=== PATIENT | male | born 1960 | race Caucasian/White ===

== ENCOUNTER 2024-02-06 06:54 | Inpatient (IN) | payer BC ==
[~2024-02-06] VITALS: Ht 182.9 cm; Wt 217.0 kg
[2024-02-06 07:27] LABS: BILIRUBIN,URINE MODERATE (Neg); CLARITY,URINE CLOUDY (Clear); COLOR,URINE AMBER (Yellow); GLUCOSE, URINE NEGATIVE (Neg); KETONES,URINE TRACE mg/dl (Neg); LEUKOCYTE ESTERASE ,URINE NEGATIVE (Neg); OCCULT BLOOD,URINE SMALL (Neg); PH,URINE 5.5 (4.8-8.0); PROTEIN,URINE 100 mg/dl (Neg)
[2024-02-06 07:36] LABS: UA COLLECTION TYPE CLN CATCH MIDSTREAM
[2024-02-06 07:37] LABS: NITRITES, URINE NEGATIVE (Neg)
[2024-02-06 07:38] LABS: SQUAMOUS EPITHELIAL CELL,UR MODERATE /LPF (FEW)
[2024-02-06 07:39] LABS: BACTERIA,URINE FEW /HPF (Neg)
[2024-02-06 07:42] LABS: ALBUMIN 3.3 G/DL (3.4-5.0); ANION GAP 12 (8-16); BASOPHILS # (AUTO) 0.1 X10'3 (0-0.2); BASOPHILS % (AUTO) 0.2 % (0-1); BLOOD UREA NITROGEN 18 MG/DL (7-18); BUN/CREATININE RATIO 15.3 (10.0-20.0); CALCIUM 9.2 MG/DL (8.5-10.1); CHLORIDE 102 MMOL/L (99-107); CREATININE 1.18 MG/DL (0.60-1.10); EOSINOPHILS % (AUTO) 0 % (0-6); GLUCOSE 132 MG/DL (70-104); HEMATOCRIT 42.2 % (42.0-52.0); HEMOGLOBIN 14.4 g/dl (14.0-17.9); LIPASE 11 U/L (16-77); LYMPHOCYTES # (AUTO) 1.1 X10'3 (1.1-4.8); LYMPHOCYTES % (AUTO) 3.8 % (21-51); MEAN CORPUSCULAR HEMOGLOBIN 31.7 PG (27.0-31.0); MEAN CORPUSCULAR VOLUME 93.2 FL (78-98); MONOCYTES # (AUTO) 1.9 X10'3 (0-0.9); MONOCYTES % (AUTO) 6.7 % (2-12); NEUTROPHILS # (AUTO) 25.8 X10'3 (1.8-7.7); NEUTROPHILS % (AUTO) 89.3 % (42-75); PLATELET COUNT 198 X10'3 (140-440); POTASSIUM 4.1 MMOL/L (3.5-5.1); RED BLOOD COUNT 4.53 X10'6 (4.70-6.10); RED CELL DISTRIBUTION WIDTH 13.4 % (11.5-14.5); SODIUM 138 MMOL/L (135-145); TOTAL CARBON DIOXIDE 23.7 MMOL/L (24-32); eCRCL 70 ML/MIN; eGFR 62 ML/MIN
[2024-02-06 07:49] LABS: WHITE BLOOD COUNT 28.9 X10'3 (4.5-11.0)
[2024-02-06] MEDS: normal saline 1000ML IV soln IVB ONE (07:51)
[2024-02-06] MEDS: ketorolac trometh 15mg/ml vial 15 MG/ML ML IV ONE (07:54)
--- NOTE | 2024-02-06 08:00 | NUR ---
Dr. Girard and biology specimen technician at bedside.
--- NOTE | 2024-02-06 08:08 | NUR ---
instrument technician at bedside. Discussed pts WBC count with Dr Girard and received verbal order to draw one set of blood cultures prior to starting ABX.
--- NOTE | 2024-02-06 08:09 | NUR ---
Patient to CT scan via gurney.
[2024-02-06 08:18] LABS: ALANINE AMINOTRANSFERASE 18 U/L (12-78); ALBUMIN/GLOBULIN RATIO 0.8 (1.1-1.5); ALKALINE PHOSPHATASE 74 IU/L (46-116); ASPARTATE AMINO TRANSFERASE 12 U/L (10-37); BILIRUBIN,DIRECT 0.4 MG/DL (0-0.3); BILIRUBIN,TOTAL 1.7 MG/DL (0.1-1.0); TOTAL PROTEIN 7.7 G/DL (6.4-8.2)
[2024-02-06 08:30] LABS: TOTAL CELLS COUNTED 100
[2024-02-06 08:34] LABS: PLATELET ESTIMATE NORMAL
--- NOTE | 2024-02-06 08:43 | NUR ---
Dr Joe at bedside with Dr Girard to discuss plan of care
[2024-02-06] MEDS: piperacillin/tazo 3.375gm/50ml 50 ML IV ONE (08:55)
[2024-02-06] MEDS ORDERED: ondansetron/PF 4mg/2ml inj IV PRN (09:05)
[2024-02-06] MEDS ORDERED: magnesium sulf-water 2g/50mL 50 ML IV PRN (09:05)
[2024-02-06] MEDS ORDERED: magnesium sulf-water 4G/100mL 100 ML IV PRN (09:05)
[2024-02-06] MEDS ORDERED: magnesium hydroxide 30ml (MOM) UD suspension PO PRN (09:05)
[2024-02-06] MEDS ORDERED: magnesium Cl slow-release 64mg tablet PO PRN (09:05)
[2024-02-06] MEDS ORDERED: potassium Cl 20 mEq SR tablet PO PRN ×2 (09:05)
[2024-02-06] MEDS ORDERED: acetaminophen 325mg tablet PO PRN (09:05)
[2024-02-06] MEDS ORDERED: potassium Cl 40MEQ/1/2NS 520ml 520 ML IV PRN (09:05)
[2024-02-06] MEDS: normal saline 1000ml 1,000 ML IV SCH (09:35)
--- NOTE | 2024-02-06 10:17 | NUR ---
Attempted to call report, RN unavailable, will call back.
[2024-02-06 10:35] LABS: CHOL/HDL RATIO 3.7 (0.00-4.99); CHOLESTEROL 169 MG/DL (0-200); HDL CHOLESTEROL 46 MG/DL (35-60); LDL CHOLESTEROL 84 MG/DL (50-100); TRIGLYCERIDES 83 MG/DL (20-135)
[2024-02-06 11:00] VITALS: BP 97/60; PULSE 98; RESP 14; TEMP 98.6; O2SAT 97
[2024-02-06 12:00] VITALS: RESP 18
[2024-02-06] MEDS: normal saline 1000ml 1,000 ML IV ONE (15:03)
[2024-02-06] MEDS ORDERED: ketorolac trometh 15mg/ml vial 15 MG/ML ML IM PRN (15:10)
[2024-02-06] MEDS: ketorolac trometh 15mg/ml vial 15 MG/ML ML IV PRN (15:30)
[2024-02-06 16:24] VITALS: PULSE 105; RESP 20; O2SAT 94
[2024-02-06] MEDS: ipratropium/albuterol 3ml nebule NEB PRN (16:24)
[2024-02-06] MEDS: piperacillin/tazo 3.375gm/50ml 50 ML IV SCH (16:29)
[2024-02-06 16:34] VITALS: PULSE 105; RESP 18
[2024-02-06 18:00] VITALS: BP 102/62; PULSE 103; RESP 18; TEMP 98.1; O2SAT 96
--- NOTE | 2024-02-06 18:41 | NUR ---
Patient in room [facility] 4013. I have received report from Nimesh LANGE and had the opportunity to ask questions and assume patient care.
[2024-02-06] MEDS: heparin, porcine 5000 units/ml vial SQ SCH (19:54)
[2024-02-06] MEDS: docusate sod 100mg capsule PO SCH (19:55)
[2024-02-06] MEDS: K and/or MAG REPLACEMENT MC SCH (20:03)
[2024-02-06 22:00] VITALS: BP 117/65; PULSE 100; RESP 19; TEMP 97.3; O2SAT 97
[2024-02-07] VITALS (22 sets, daily range): BP systolic 100–132; BP diastolic 61–81; PULSE 76–112; RESP 15–20; TEMP 97.2–99.9; O2SAT 94–99
--- NOTE | 2024-02-07 06:49 | NUR ---
report to Yuliya MEYERS
--- NOTE | 2024-02-07 07:35 | NUR ---
call placed to DR Martinez. pt with SOB, dimished bases, breathing tx recd. Per MD able to hold NS 125. Will recheck O2 sats and call MD. Pt baseline sats 96% on RA
[2024-02-07 07:40] LABS: BASOPHILS % (AUTO) 0.1 % (0-1); EOSINOPHILS % (AUTO) 0.1 % (0-6); HEMATOCRIT 38.3 % (42.0-52.0); HEMOGLOBIN 12.9 g/dl (14.0-17.9); LYMPHOCYTES % (AUTO) 6.1 % (21-51); MEAN CORPUSCULAR HEMOGLOBIN 31.6 PG (27.0-31.0); MEAN CORPUSCULAR HGB CONC 33.6 g/dL (33.0-36.5); MEAN PLATELET VOLUME 9.3 FL (7.4-10.4); MONOCYTES # (AUTO) 0.9 X10'3 (0-0.9); MONOCYTES % (AUTO) 5.5 % (2-12); NEUTROPHILS # (AUTO) 15.1 X10'3 (1.8-7.7); NEUTROPHILS % (AUTO) 88.2 % (42-75); PLATELET COUNT 175 X10'3 (140-440); RED BLOOD COUNT 4.07 X10'6 (4.70-6.10); RED CELL DISTRIBUTION WIDTH 13.4 % (11.5-14.5); WHITE BLOOD COUNT 17.1 X10'3 (4.5-11.0)
[2024-02-07 08:03] LABS: ALANINE AMINOTRANSFERASE 26 U/L (12-78); ALBUMIN 2.6 G/DL (3.4-5.0); ALBUMIN/GLOBULIN RATIO 0.6 (1.1-1.5); ALKALINE PHOSPHATASE 80 IU/L (46-116); ANION GAP 10 (8-16); ASPARTATE AMINO TRANSFERASE 22 U/L (10-37); BLOOD UREA NITROGEN 21 MG/DL (7-18); BUN/CREATININE RATIO 20.2 (10.0-20.0); CALCIUM 8.5 MG/DL (8.5-10.1); CHLORIDE 105 MMOL/L (99-107); CREATININE 1.04 MG/DL (0.60-1.10); GLUCOSE 108 MG/DL (70-104); MAGNESIUM 1.9 MG/DL (1.5-2.4); POTASSIUM 3.7 MMOL/L (3.5-5.1); SODIUM 139 MMOL/L (135-145); TOTAL CARBON DIOXIDE 24.4 MMOL/L (24-32); TOTAL PROTEIN 6.9 G/DL (6.4-8.2); eCRCL 80 ML/MIN; eGFR 72 ML/MIN
[2024-02-07] MEDS: BUPIVAcaine 2.5mg/ml inj 50ml vial (contains preservative) ONE (08:27)
--- NOTE | 2024-02-07 08:55 | NUR ---
Lopressor ok to give per MD Bradley
[2024-02-07] MEDS: normal saline 1000ml 1,000 ML IV SCH (08:57)
[2024-02-07] MEDS: metoprolol succinate 25mg (24-HOUR) SR. Tablet PO SCH (08:59)
[2024-02-07] MEDS ORDERED: sevoflurane 250ml liquid IH ONE (09:24)
[2024-02-07] MEDS ORDERED: midazolam 1 mg/ML 2ml injection ONE (09:25)
[2024-02-07] MEDS ORDERED: fentaNYL /PF 50mcg/ml 5ml ampule ONE (09:26)
[2024-02-07] MEDS ORDERED: propofol inj 20 ML IV ONE (09:26)
[2024-02-07] MEDS ORDERED: rocuronium 10mg/ml inj IV ONE (09:31)
[2024-02-07] MEDS ORDERED: dexamethasone sod phosphate 4mg/ml inj. ONE (09:46)
[2024-02-07] MEDS ORDERED: proCHLORperazine 10 MG/2 ml inj IV PRN (10:15)
[2024-02-07] MEDS ORDERED: morphine 4 MG/ML inj SYRINge IV PRN ×2 (10:15→11:50)
[2024-02-07] MEDS ORDERED: meperidine/PF 25mg/ml syringe IV PRN ×3 (10:15)
[2024-02-07] MEDS ORDERED: morphine 2 MG/ML inj. syringe IV PRN (10:15)
[2024-02-07] MEDS ORDERED: labetalol 20mg/4ml (5mg/ml) syringe IV PRN (10:15)
[2024-02-07] MEDS ORDERED: ondansetron/PF 4mg/2ml inj IV PRN (10:15)
[2024-02-07] MEDS: BUPIVAcaine 2.5mg/ml inj 50ml vial (contains preservative) SQ ONE (10:24)
[2024-02-07] MEDS ORDERED: ondansetron/PF 4mg/2ml inj ONE (10:31)
[2024-02-07] MEDS ORDERED: neostigmine methylsulfate 1 MG/ML 10ml vial ONE (10:36)
[2024-02-07] MEDS ORDERED: glycopyrrolate 0.2mg/ml inj ONE (10:36)
[2024-02-07] MEDS ORDERED: acetaminophen 1,000mg/100ml IV 100 ML IV ONE (10:42)
--- NOTE | 2024-02-07 11:10 | NUR ---
Received from OR via BED, accompanied by Anesthesiologist REEBCCA and report given by Anesthesiolgist. PT DROWSY, OXYGENATING WELL ON 6 LPM O2 VIA MASK. NO RESP DISTRESS NOTED. PT DENIES NAUSEA OR PAIN AT THIS TIME. 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 4TH SITE HAS DARRELL DRAIN WITH SEROSANGUINOUS OUTPUT. VSS. SCDS ON. NO RODRIGUEZ.
[2024-02-07] MEDS ORDERED: HYDROcodone/acetaminophen 10/325mg tab PO PRN (11:50)
[2024-02-07] MEDS ORDERED: HYDROcodone/acetaminophen 5mg/325mg tablet PO PRN (11:50)
--- NOTE | 2024-02-07 12:10 | NUR ---
Report called to receiving nurse. Transferred via bed Belongings in pt room. pt denies pain, advised him to ask for prn meds when local anesthetic wears off. tolerating po fluids, denies nausea. vss. transferred back to 4th floor in stable condition. at bedside. Special Issues communicated to receiving nurse.
[2024-02-07] MEDS: ringers solution, lacted 1,000 ML IV SCH (12:27)
--- NOTE | 2024-02-07 19:15 | NUR ---
Resting comfortably, at bedside. Patient has no concerns at this time.
[2024-02-07] MEDS: bacitracin 15gm ointment TP ONE (19:20)
[2024-02-08] MEDS: mag hydrox/Alum hydrox/simeth 30ml oral suspension PO PRN (00:36)
[2024-02-08 02:20] LABS: BASOPHILS % (AUTO) 0.1 % (0-1); EOSINOPHILS % (AUTO) 0 % (0-6); HEMATOCRIT 34.1 % (42.0-52.0); HEMOGLOBIN 11.4 g/dl (14.0-17.9); LYMPHOCYTES # (AUTO) 0.5 X10'3 (1.1-4.8); LYMPHOCYTES % (AUTO) 3.6 % (21-51); MEAN CORPUSCULAR HEMOGLOBIN 31.5 PG (27.0-31.0); MEAN CORPUSCULAR HGB CONC 33.4 g/dL (33.0-36.5); MEAN CORPUSCULAR VOLUME 94.2 FL (78-98); MONOCYTES # (AUTO) 0.7 X10'3 (0-0.9); MONOCYTES % (AUTO) 4.9 % (2-12); NEUTROPHILS # (AUTO) 12.8 X10'3 (1.8-7.7); NEUTROPHILS % (AUTO) 91.4 % (42-75); PLATELET COUNT 194 X10'3 (140-440); RED BLOOD COUNT 3.62 X10'6 (4.70-6.10); RED CELL DISTRIBUTION WIDTH 13.9 % (11.5-14.5)
[2024-02-08 02:40] LABS: ALANINE AMINOTRANSFERASE 38 U/L (12-78); ALBUMIN 2.1 G/DL (3.4-5.0); ALBUMIN/GLOBULIN RATIO 0.5 (1.1-1.5); ALKALINE PHOSPHATASE 71 IU/L (46-116); ANION GAP 7 (8-16); ASPARTATE AMINO TRANSFERASE 25 U/L (10-37); BILIRUBIN,TOTAL 0.4 MG/DL (0.1-1.0); BLOOD UREA NITROGEN 23 MG/DL (7-18); BUN/CREATININE RATIO 22.5 (10.0-20.0); CALCIUM 8.2 MG/DL (8.5-10.1); CHLORIDE 109 MMOL/L (99-107); CREATININE 1.02 MG/DL (0.60-1.10); GLUCOSE 149 MG/DL (70-104); MAGNESIUM 2.1 MG/DL (1.5-2.4); POTASSIUM 3.8 MMOL/L (3.5-5.1); SODIUM 142 MMOL/L (135-145); TOTAL CARBON DIOXIDE 26.1 MMOL/L (24-32); TOTAL PROTEIN 6.2 G/DL (6.4-8.2); eCRCL 81 ML/MIN; eGFR 74 ML/MIN
[2024-02-08 02:59] VITALS: PULSE 73; RESP 16; O2SAT 96
--- NOTE | 2024-02-08 05:14 | NUR ---
ANISA DOCUMENTATION: I have reviewed all assessments and charting on this patient byMichele LVN and agree with his documentation.
--- NOTE | 2024-02-08 06:36 | NUR ---
Patient in room [facility]TH[facility] 4013. I have received report from Michele LANGE and had the opportunity to ask questions and assume patient care.
--- NOTE | 2024-02-08 06:43 | NUR ---
Problems reprioritized. Patient report given, questions answered & plan of care reviewed with Eb RN.
[2024-02-08 06:47] VITALS: BP 114/69; PULSE 75; RESP 18; TEMP 96.9; O2SAT 95
[2024-02-08 07:42] VITALS: PULSE 78; RESP 16; O2SAT 97
[2024-02-08 07:50] VITALS: PULSE 78; RESP 16
[2024-02-08 08:00] VITALS: RESP 18
[2024-02-08] MEDS ORDERED: BUDE10.2 (08:37)
[2024-02-08] MEDS ORDERED: METO-395 PO (08:37)
[2024-02-08] MEDS ORDERED: LACT1CAP26 PO (10:23)
[2024-02-08] MEDS ORDERED: AMOX-117 PO (10:23)
[2024-02-08] MEDS ORDERED: ACET-1008 PO (10:31)
[2024-02-08 11:00] VITALS: BP 105/59; PULSE 90; RESP 18; TEMP 98.7; O2SAT 96
--- NOTE | 2024-02-08 17:19 | NUR ---
Patient discharged home with family in room IV taken out at this time. Patient drain DC'd before discharge. Patient was educated on the new medications and follow up instructions.
== END 2024-02-08 14:20 | disposition home or self-care (01) | DRG 854 ==
LOC: ER 06:55 → ED HOLD 09:11 → ORTHO 4S 11:00
PROVIDERS: ADMIT Family Medicine; ATTEND Family Medicine
PROC: 0FT44ZZ Resection of Gallbladder, Percutaneous Endoscopic Approach (ICD-10-PCS; principal; 2024-02-08)
DX: A41.9 Sepsis, unspecified organism (principal); K80.00 Calculus of gallbladder with acute cholecystitis without obstruction; J45.909 Unspecified asthma, uncomplicated; K82.8 Other specified diseases of gallbladder; E88.09 Other disorders of plasma-protein metabolism, not elsewhere classified; I49.3 Ventricular premature depolarization; Z83.79 Family history of other diseases of the digestive system; Z82.69 Family history of other diseases of the musculoskeletal system and connective tissue; Z82.49 Family history of ischemic heart disease and other diseases of the circulatory system
CPT/HCPCS: 96361; 96365; 96375; 99285; Z7506; Z7508; 36415; 71045; 74176; 76700; 80048; 80053; 80061; 80076; 81001; 83605; 83690; 83735; 84145; 84484; 85007; 85025; 87040; 87081; 87088; 93005; 94640; 94760; A4215; A4615; A4618; A6258; A6449; A7000; G0378; J0131; J1100; J1644; J1885; J2250; J2405; J2543; J2704; J2710; J3010; J3490; J7030; J7120